=== PATIENT | male | born 1965 | race American Indian/Alaskan Native ===

== ENCOUNTER 2016-11-08 20:27 | Inpatient (IN) | payer OTHER ==
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
[2016-11-09 00:49] LABS: Basophils % (Auto) 0.3 % (0.0-1.8); Eosinophils % (Auto) 1.1 % (0.0-4.3); Hematocrit 41.4 % (35.5-45.6); Hemoglobin 13.7 gm/dl (11.8-15.2); Mean Corpuscular HGB Conc 33 % (32-34); Mean Corpuscular Hemoglobin 31 pg (28-32); Mean Corpuscular Volume 92 fl (84-94); Platelet Count 293 K/mm3 (140-440); Red Blood Count 4.48 M/mm3 (3.65-5.03); Red Cell Distribution Width 13.6 % (13.2-15.2); White Blood Count 8.1 K/mm3 (4.5-11.0)
[2016-11-09 01:22] LABS: Anion Gap 21 mmol/L; BUN/Creatinine Ratio 11.42; Blood Urea Nitrogen 8 mg/dL (9-20); Calcium 8.8 mg/dL (8.4-10.2); Carbon Dioxide 23 mmol/L (22-30); Chloride 98.3 mmol/L (98-107); Glucose 109 mg/dL (75-100); Potassium 3.5 mmol/L (3.6-5.0); Sodium 139 mmol/L (137-145)
[2016-11-09] MEDS ORDERED: TORADOL IM ONE (02:04)
[2016-11-09] MEDS ORDERED: NORCO 5/325 PO ONE (02:04)
[2016-11-09] MEDS ORDERED: FLEXERIL PO ONE (02:04)
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
[2016-11-09] MEDS ORDERED: MILK OF MAGNESIA PO PRN (05:21)
[2016-11-09] MEDS ORDERED: TYLENOL PO PRN (05:21)
[2016-11-09] MEDS ORDERED: ZOFRAN IV PRN (05:21)
[2016-11-09] MEDS ORDERED: DULCOLAX PR PRN (05:21)
[2016-11-09] MEDS ORDERED: PERCOCET 5/325 PO PRN (05:23)
[2016-11-09] MEDS ORDERED: D5NS 1,000 ML IV SCH (06:00)
--- NOTE | 2016-11-09 08:01 | Admit Criteria Form ---
Admission Criteria Documentation: MUSCULOSKELETAL DISEASE GRG Clinical Indications for Admission to Inpatient Care (Place 'X' for any and all applicable criteria): Hospital admission is needed for appropriate care of the patient because of ANY ONE of the following: [X]I. Fracture, dislocation, or other musculoskeletal injury requiring inpatient care(medical) as indicated by ANY ONE of the following(4)(5)(6)(7) [ ]a) Vertebral fracture requiring observation for instability or neurologic compromise (8) [ ]b) Compartment syndrome (proven or cannot be ruled out during observation level of care) (9) [ ]c) Limb-threatening injury [ ]d) Major injury requiring inpatient stabilization such as traction initiation or external fixation before internal fixation or closure of complex or open fracture [X]e) Major injury requiring inpatient treatment after emergency or observation level care (as appropriate) [X]f) Severe pain requiring acute inpatient management [ ]II. Newly diagnosed or suspected bone, joint, or orthopedic device infection (e.g., osteomyelitis, septic arthritis) needing ANY ONE of the following(1)(2)(3) [ ]a) IV antibiotics that cannot be initiated in other than inpatient setting (e.g., patient too unstable or home infusion not available) [ ]b) Device removal or replacement [ ]c) Bone or soft tissue debridement [ ]d) Joint drainage (drain placement or repetitive aspirations) [ ]III. Severe rheumatologic disease (e.g., systemic lupus erythematosus, rheumatoid arthritis) with complications or comorbidities (Also use Optimal Recovery Care Criteria or General Recovery Criteria as appropriate on the basis of predominant condition), including ANY ONE of the following(10 )(11)(12)(13) [ ]a) Severe infection (e.g., COMPUTER HARDWARE ENGINEER infection, sepsis) (14) [ ]b) Respiratory complications, including ANY ONE of the following: [ ]i) Pleural effusion with respiratory compromise [ ]ii) Pulmonary hypertension with congestive failure [ ]iii) Respiratory failure [ ]iv) Pulmonary hemorrhage (15) [ ]c) Hematologic disease, including ANY ONE of the following: [ ]i) Coagulopathy with bleeding [ ]ii) Thrombosis with hypercoagulable state [ ]iii) Thrombotic thrombocytopenic purpura [ ]d) Cerebritis with seizures, psychosis, or other severe abnormalities [ ]e) Vertebral destruction with monitoring needed for cervical myelopathy& possible respiratory compromise [ ]f) Exacerbation that requires inpatient treatment (e.g., intravenous immunosuppression) (16) [ ]g) Acute renal failure [ ]IV. Severe vasculitis with complications or comorbidities (Also use Optimal Recovery Care Criteria or General Recovery Criteria as appropriate on the basis of predominant condition), including ANY ONE of the following(11)(12)(17)(18)(19)(20) [ ]a) COMPUTER HARDWARE ENGINEER vasculitis with seizures, psychosis, or other severe abnormalities (22) [ ]b) Renal failure (16) [ ]c) Pulmonary hemorrhage (15) [ ]d) Cerebral infarction [ ]e) Gastrointestinal ischemia [ ]f) Gangrene or threatened amputation [ ]g) Exacerbation that requires inpatient treatment (e.g., intravenous immunosuppression) (19)(21) [ ]V. Severe myopathy as indicated by ANY ONE of the following (28)(29) [ ]a) New onset of airway compromise or inability to swallow [ ]b) Respiratory deterioration with observation needed for impending respiratory failure [ ]c) Exacerbation that requires inpatient treatment (e.g., intravenous immunosuppression) [ ]. Severe gout (crystal arthropathy) as indicated by ANY ONE of the following (23)(24) [ ]a) Severe pain requiring acute inpatient management [ ]b) Exacerbation that requires inpatient treatment (e.g., intravenous treatment) [ ]VII.Rhabdomyolysis and ANY ONE of the following (25)(26)(27) [ ]a) Acute renal failure [ ]b) Need for intravenous hydration after emergency or observation level care (as appropriate) [ ]c) Inability to maintain oral hydration [ ]d) Change in mental status [ ]e) Electrolyte abnormality that remains after emergency or observation level care (as appropriate) [ ]VIII Post amputation complication, as indicated by ANY ONE of the following [ ]a) Infection [ ]b) Dehiscence [ ]c) Myodesis failure [ ]IX. Severe pain requiring acute inpatient management as indicated by ALL of the following (30)(31)(32) [ ]a) Continuous or frequent (e.g., every 2 to 4 hrs) parenteral analgesics required [A] [ ]b) Rapid improvement expected from treatment or acute intervention ( e.g., surgery, anesthesia procedure[B] [ ]X. Musculoskeletal Disease and ALL of the following: [ ]a) Symptom or finding for which emergency and observation care have failed or are not considered appropriate (Use General Criteria: Observation Care as appropriate) [ ]b) Presence of ANY ONE of the following [ ]i) A General Admission Criteria [ ]ii) A Pediatric General Admission Criteria The original [facility] content created by [facility] has been revised. The portions of the content which have been revised are identified through the use of italic text or in bold, and [facility] has neither reviewed nor approved the modified material. All other unmodified content is copyright [facility]. Please see references footnoted in the original [facility] edition 2016 Admission Criteria Met: Yes
[2016-11-09] MEDS: ROBAXIN PO SCH ×2 (11:06→23:45)
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
--- NOTE | 2016-11-09 15:14 | Progress Note ---
Assessment and Plan - Patient Problems (1) Pneumomediastinum Current Visit: Yes Status: Acute Plan to address problem: Patient is asymptomatic CT chest findings reviewed He is clinically stable Is no respiratory distress or any local tenderness However the risk is he has to fly tomorrow is not in town I Dicussed the patient's problem with and consult was placed (2) Rib fracture Current Visit: Yes Status: Acute Qualifiers: Encounter type: initial encounter Rib fracture type: multiple ribs Fracture type: closed Laterality: right Fracture healing: F Qualified Code (s): S22.41XA - Multiple fractures of ribs, right side, initial encounter for closed fracture Plan to address problem: Nondisplaced 5 and 6 rib fractures on the right side Patient is asymptomatic There is no tenderness over the chest wall He is medically stable Subjective Date of service: 11/09/16 Interval history: Patient was apparently admitted for minimal right pneumomediastinum Was recently offers no specific complaints He denies any chest pain or shortness of breath Says he wants to go He says he has to fly to [place] tomorrow to attend his daughter's wedding Objective - Constitutional Vitals: Vital Signs - 12hr 11/09/16 11/09/16 11/09/16 05:35 07:43 09:03 Temperature 98.6 F Pulse Rate 68 Respiratory 20 20 16 Rate Blood Pressure 139/80 [Right] O2 Sat by Pulse 98 98 99 Oximetry General appearance: Present: no acute distress - EENT Eyes: PERRL, EOM intact ENT: hearing intact, clear oral mucosa - Neck Neck: supple, normal ROM, no masses or JVD - Respiratory Respiratory effort: normal Respiratory: bilateral: CTA, negative: rhonchi, wheezing - Cardiovascular Rhythm: regular Heart Sounds: Present: S1 & S2 Extremities: No edema - Gastrointestinal General gastrointestinal: Present: soft, non-tender Rectal Exam: deferred - Integumentary Integumentary: clear - Musculoskeletal Musculoskeletal: strength equal bilaterally, other (there is no chest wall tenderness on the right side) - Neurologic Neurologic: CNII-XII intact, no focal deficits - Psychiatric Psychiatric: appropriate mood/affect - Labs CBC & Chem 7: 11/09/16 00:30 11/09/16 00:30
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
[2016-11-09] MEDS: DILAUDID IV PRN ×2 (17:37→23:59)
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
[2016-11-09 21:40] LABS: ISTAT Base Excess -1; ISTAT HCO3 24.2; ISTAT PCO2 39.7 (35-45); ISTAT PH 7.392 (7.35-7.45); ISTAT PO2 89 (80-105); ISTAT SITE 1; ISTAT SO2 97; ISTAT TCO2 25
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
--- NOTE | 2016-11-09 23:54 | Cat Scan Report ---
FINAL REPORT EXAM: CT CHEST W CON HISTORY: Pneumomediastinum TECHNIQUE: Spiral CT scanning of the chest after the uneventful administration of IV contrast. Multiplanar reformations. 100 mL Omnipaque IV. PRIORS: 08 November 2016. FINDINGS: Chest: Lungs show mild and focal, pleuro-parenchymal density in the right middle lobe mildly increased from comparison. Patchy and partially confluent opacities in the right lower lobe also mildly increased. Less pronounced, reticular opacities in left lung base probably atelectatic. Minimal right pleural effusion new from comparison. No discrete parenchymal mass, left pleural effusion or apparent pneumothorax. Mediastinal structures are without significant abnormality. Trace amount of air noted previously in the right anteroinferior mediastinum no longer apparent. Mild cardiomegaly. No apparent aneurysm, pseudoaneurysm or aortic dissection. No significant lymph node enlargement or axillary adenopathy. Visualized upper abdomen grossly unremarkable. Nondisplaced fractures of right anterior ribs 4-6. IMPRESSION: 1. Patchy opacities in right middle and lower lobes may represent atelectasis, infiltrates or contusions, mildly increased in the interval. Minimal right pleural effusion. Interval resolution of pneumomediastinum. 2. Fractures of right anterior ribs 4-6.
[2016-11-10 05:52] LABS: Basophils % (Auto) 0.6 % (0.0-1.8); Eosinophils % (Auto) 2.3 % (0.0-4.3); Hemoglobin 13.4 gm/dl (11.8-15.2); Mean Corpuscular HGB Conc 34 % (32-34); Mean Corpuscular Hemoglobin 31 pg (28-32); Mean Corpuscular Volume 93 fl (84-94); Platelet Count 251 K/mm3 (140-440); Red Blood Count 4.33 M/mm3 (3.65-5.03); Red Cell Distribution Width 13.7 % (13.2-15.2); White Blood Count 4.6 K/mm3 (4.5-11.0)
[2016-11-10 06:16] LABS: Alanine Aminotransferase 10 units/L (7-56); Albumin 3.8 g/dL (3.9-5); Albumin/Globulin Ratio 1.5 %; Alkaline Phosphatase 78 units/L (35-129); Anion Gap 18 mmol/L; BUN/Creatinine Ratio 11.66; Bilirubin,Total 0.3 mg/dL (0.1-1.2); Blood Urea Nitrogen 7 mg/dL (9-20); Calcium 8.5 mg/dL (8.4-10.2); Carbon Dioxide 25 mmol/L (22-30); Chloride 104.2 mmol/L (98-107); Glucose 117 mg/dL (75-100); Potassium 4.1 mmol/L (3.6-5.0); Sodium 143 mmol/L (137-145); Total Protein 6.3 g/dL (6.3-8.2)
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
[2016-11-10 09:37] VITALS: BP 150/80
[2016-11-10] MEDS: ROBAXIN PO SCH (10:24)
--- NOTE | 2016-11-10 10:53 | XRay Report ---
AP chest History: Pain, rib fracture Findings: No displaced rib fracture is detected on portable chest. The thoracic is grossly intact. Heart and mediastinal structures are unremarkable. The lungs are grossly clear. Impression: Unremarkable AP chest.
== END 2016-11-10 10:25 | disposition left against medical advice (07) | DRG 200 ==
LOC: ED 20:27 → 3A 11-09 05:21
PROVIDERS: ADMIT Internal Medicine; ATTEND Internal Medicine
DX: T79.7XXA Traumatic subcutaneous emphysema, initial encounter (principal); S22.41XA Multiple fractures of ribs, right side, initial encounter for closed fracture; Z68.42 Body mass index [BMI] 45.0-49.9, adult; J98.11 Atelectasis; E66.01 Morbid (severe) obesity due to excess calories; Z82.49 Family history of ischemic heart disease and other diseases of the circulatory system; V29.9XXA Motorcycle rider (driver) (passenger) injured in unspecified traffic accident, initial encounter; Y93.89 Activity, other specified; Y92.89 Other specified places as the place of occurrence of the external cause; Y99.8 Other external cause status; Z53.21 Procedure and treatment not carried out due to patient leaving prior to being seen by health care provider
CPT/HCPCS: 36415; 36600; 71010; 71020; 71260; 74176; 80048; 80053; 82803; 84484; 85025; 93005; 93010; 96372; J1170; J1885; J7042; Q9967